=== PATIENT | male | born 1990 | race Caucasian/White ===

== ENCOUNTER 2018-02-11 00:04 | Inpatient (IN) | payer OTHER ==
[2018-02-12 08:18] VITALS: BP 119/73
[2018-02-12 15:57] VITALS: BP 119/64
[2018-02-13 07:52] VITALS: BP 97/55
[2018-02-13 15:43] VITALS: BP 123/58
[2018-02-14 07:58] VITALS: BP 126/55
[2018-02-14] MEDS ORDERED: ZOLOFT100 MG PO (10:05)
[2018-02-14] MEDS ORDERED: QUETIAPINE FUMA50 MG PO (10:05)
== END 2018-02-14 12:39 | disposition home or self-care (01) | DRG 885 ==
LOC: 1WEST 00:04 → ENRESERV 02-12 00:05 → 1WEST 02-12 00:08
DX: F33.3 Major depressive disorder, recurrent, severe with psychotic symptoms (principal); R45.851 Suicidal ideations; F12.20 Cannabis dependence, uncomplicated; Z56.0 Unemployment, unspecified